=== PATIENT | female | born 1960 ===

== ENCOUNTER 2018-04-17 15:43 | Emergency (ER) | payer OTHER ==
[2018-04-17 15:49] VITALS: RESP 18; TEMP 98.6
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
--- NOTE | 2018-04-17 18:40 | RAD ---
Date of service: 04/17/2018 PROCEDURE: Cervical Spine Radiographs. HISTORY: Pain. COMPARISON: None. FINDINGS: BONES: Alignment maintained. No fracture. Dens Intact. DISC SPACES: Normal. SOFT TISSUES: Normal. No prevertebral soft tissue swelling. OTHER FINDINGS: None. IMPRESSION: Normal cervical spine radiographs
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
[2018-04-17 18:51] VITALS: BP 135/75; PULSE 72; O2SAT 100
== END 2018-04-17 18:52 | disposition home or self-care (01) ==
LOC: H.ER 15:43
DX: S09.90XA Unspecified injury of head, initial encounter (principal); M25.512 Pain in left shoulder; M54.2 Cervicalgia; Y92.410 Unspecified street and highway as the place of occurrence of the external cause; Y93.55 Activity, bike riding